=== PATIENT | female | born 1965 | race Caucasian/White ===

== ENCOUNTER 2020-07-22 17:35 | Emergency (ER) | payer BC ==
--- NOTE | 2020-07-22 18:05 | EDM.PDOC ---
ED HPI GENERAL MEDICAL PROBLEM - General Chief Complaint: Respiratory Problem Stated Complaint: BLOOD CLOT IN LUNG/SENT FROM [place] Time Seen by Provider: 07/22/20 17:50 Source of Information: Reports: Patient, RN Notes Reviewed History Limitations: Reports: No Limitations - History of Present Illness INITIAL COMMENTS - FREE TEXT/NARRATIVE: Patient is a 54-year-old female who presents to the ED from her oncologist office for further evaluation. The patient was at her doctor's office today to get IV fluids, and she began to develop chest pressure, and shortness of breath, and was found to have O2 sats that were 82 to 83% on room air. She was placed on oxygen at roughly 2 to 3 L and she does improved to around 95%. She quickly desaturates with any sort of movement. Patient notes that she has cancer pretty much all over they think the primary causes lung cancer. She has had 1 round of treatment. Her oncologist is Dr. Patel. She does note that she also had a thora centesis yesterday, and felt pretty good. She denies any fevers or chills, nausea/vomiting/diarrhea. She has no chest pain. She feels like she could be constipated, she has not had a bowel movement in roughly 3 days. She is also complaining of some pelvic pressure but notes that she has a mass in her pelvis and is not sure if this might be what is causing some of her issues. Apparently a CT was done at the [facility] and she was supposed to have had a pulmonary embolus, I have not seen the official read for this however. Treatments DRUG AND ALCOHOL TREATMENT SPECIALIST: Reports: Other (see below) Other Treatments DRUG AND ALCOHOL TREATMENT SPECIALIST: Chest xrray and CT at clinic Left Lower Chest Pain Score (Numeric/FACES): 5 - Related Data Allergies Allergy/AdvReac Type Severity Reaction Status Date / Time No Known Allergies Allergy Verified 07/22/20 17:47 Home Meds: Home Meds Acetaminophen [Tylenol] 325 mg PO DAILY PRN 07/22/20 [History] Hydrocodone/Acetaminophen [Hydrocodone-Acetamin 5-325 mg] 1 each PO Q4H PRN 07/22/20 [History] Levothyroxine 75 mcg PO ACBREAKFAST 07/22/20 [History] Morphine Sulfate 30 mg PO BID 07/22/20 [History] OLANZapine [ZyPREXA] 10 mg PO ASDIRECTED 07/22/20 [History] Ondansetron [Zofran ODT] 8 mg PO Q6H PRN 07/22/20 [History] Prochlorperazine [Compazine] 10 mg PO QID PRN 07/22/20 [History] dexAMETHasone [Decadron] 4 mg PO ASDIRECTED 07/22/20 [History] Social & Family History - Tobacco Use Tobacco Use Status *Q: Never Tobacco User - Caffeine Use Caffeine Use: Reports: Coffee - Recreational Drug Use Recreational Drug Use: No ED ROS GENERAL - Review of Systems Review Of Systems: Comprehensive ROS is negative, except as noted in HPI. ED EXAM, GENERAL - Physical Exam Exam: See Below Exam Limited By: No Limitations General Appearance: Alert, WD/WN, No Apparent Distress Respiratory/Chest: No Respiratory Distress, Lungs Clear, Normal Breath Sounds, No Accessory Muscle Use, Chest Non-Tender Cardiovascular: Normal Peripheral Pulses, Regular Rate, Rhythm, No Edema, No Murmur Peripheral Pulses: 2+: Radial (L), Radial (R) Extremities: Normal Inspection, Normal Capillary Refill Neurological: Alert, Oriented, Normal Cognition, No Motor/Sensory Deficits Psychiatric: Normal Affect, Normal Mood Skin Exam: Warm, Dry, Intact, Normal Color, No Rash #1 Interpretation EKG Date: 07/22/20 Time: 18:35 Rhythm: NSR (sinus tach) Rate (Beats/Min): 100 [place]: Normal P-Wave: Present QRS: Normal ST-T: Normal QT: Normal Comparison: NA - No Prior EKG EKG Interpretation Comments: No obvious ischemia or acute ST changes noted, reviewed by myself and Dr. Vargas. Course - Vital Signs Last Recorded V/S: Last Vital Signs Temp 97.6 F 07/22/20 17:48 Pulse 109 H 07/22/20 17:48 Resp 20 07/22/20 17:48 BP 146/77 H 07/22/20 17:48 Pulse Ox 94 L 07/22/20 17:48 - Orders/Labs/Meds Orders: Active Orders 24 hr Category Date Time Status EKG Documentation Completion [RC] STAT Care 07/22/20 18:27 Ordered Oxygen Therapy, ED [RC] ASDIRECTED Care 07/22/20 18:07 Ordered KUB [Abdomen 1V Flat] [CR] Stat Exams 07/22/20 18:11 Stop Req Heparin Sodium/D5W [Heparin 25,000 Units in D5W 500 ML] Med 07/22/20 21:15 Active 25,000 units in 500 ml IV TITRATE Medication Orders Heparin Sodium/Dextrose (Heparin 25,000 Units In D5w 500 Ml) 25,000 units in 500 mls @ 19.051 mls/hr IV TITRATE LAE; Protocol Labs: Laboratory Tests 07/22/20 07/22/20 07/22/20 Range/Units 18:30 18:30 18:30 WBC 0.94 L* (3.98-10.04) K/mm3 RBC 3.89 L (3.98-5.22) M/mm3 Hgb 11.8 (11.2-15.7) gm/dl Hct 35.6 (34.1-44.9) % MCV 91.5 (79.4-94.8) fl MCH 30.3 (25.6-32.2) pg MCHC 33.1 (32.2-35.5) g/dl RDW Std Deviation 43.0 (36.4-46.3) fL Plt Count 71 L (182-369) K/mm3 MPV 9.9 (9.4-12.3) fl Neut % (Auto) 21.2 L (34.0-71.1) % Lymph % (Auto) 68.1 H (19.3-51.7) % [place] % (Auto) 8.5 (4.7-12.5) % Eos % (Auto) 1.1 (0.7-5.8) Baso % (Auto) 1.1 (0.1-1.2) % Neut # (Auto) 0.20 L (1.56-6.13) K/mm3 Lymph # (Auto) 0.64 L (1.18-3.74) K/mm3 [place] # (Auto) 0.08 L (0.24-0.36) K/mm3 Eos # (Auto) 0.01 L (0.04-0.36) K/mm3 Baso # (Auto) 0.01 (0.01-0.08) K/mm3 Manual Slide Review Abnormal smear PT 10.3 (9.7-12.0) SECONDS INR 0.96 APTT 24.7 (21.7-31.4) SECONDS Sodium 135 L (136-145) mEq/L Potassium 3.3 L (3.5-5.1) mEq/L Chloride 101 (98-107) mEq/L Carbon Dioxide 26 (21-32) mEq/L Anion Gap 11.3 (5-15) BUN 12 (7-18) mg/dL Creatinine 0.6 (0.55-1.02) mg/dL Est Cr Clr Drug Dosing 99.18 mL/min Estimated GFR (MDRD) > 60 (>60) mL/min BUN/Creatinine Ratio 20.0 H (14-18) Glucose 110 H (74-106) mg/dL Calcium 8.1 L (8.5-10.1) mg/dL Total Bilirubin 0.3 (0.2-1.0) mg/dL AST 17 (15-37) U/L ALT 22 (14-59) U/L Alkaline Phosphatase 72 (46-116) U/L Troponin I (0.00-0.056) ng/mL Total Protein 5.9 L (6.4-8.2) g/dl Albumin 2.5 L (3.4-5.0) g/dl Globulin 3.4 gm/dL Albumin/Globulin Ratio 0.7 L (1-2) SARS-CoV-2 RNA (RADHA) (NEGATIVE) 07/22/20 07/22/20 Range/Units 18:30 18:55 WBC (3.98-10.04) K/mm3 RBC (3.98-5.22) M/mm3 Hgb (11.2-15.7) gm/dl Hct (34.1-44.9) % MCV (79.4-94.8) fl MCH (25.6-32.2) pg MCHC (32.2-35.5) g/dl RDW Std Deviation (36.4-46.3) fL Plt Count (182-369) K/mm3 MPV (9.4-12.3) fl Neut % (Auto) (34.0-71.1) % Lymph % (Auto) (19.3-51.7) % [place] % (Auto) (4.7-12.5) % Eos % (Auto) (0.7-5.8) Baso % (Auto) (0.1-1.2) % Neut # (Auto) (1.56-6.13) K/mm3 Lymph # (Auto) (1.18-3.74) K/mm3 [place] # (Auto) (0.24-0.36) K/mm3 Eos # (Auto) (0.04-0.36) K/mm3 Baso # (Auto) (0.01-0.08) K/mm3 Manual Slide Review PT (9.7-12.0) SECONDS INR APTT (21.7-31.4) SECONDS Sodium (136-145) mEq/L Potassium (3.5-5.1) mEq/L Chloride (98-107) mEq/L Carbon Dioxide (21-32) mEq/L Anion Gap (5-15) BUN (7-18) mg/dL Creatinine (0.55-1.02) mg/dL Est Cr Clr Drug Dosing mL/min Estimated GFR (MDRD) (>60) mL/min BUN/Creatinine Ratio (14-18) Glucose (74-106) mg/dL Calcium (8.5-10.1) mg/dL Total Bilirubin (0.2-1.0) mg/dL AST (15-37) U/L ALT (14-59) U/L Alkaline Phosphatase (46-116) U/L Troponin I < 0.017 (0.00-0.056) ng/mL Total Protein (6.4-8.2) g/dl Albumin (3.4-5.0) g/dl Globulin gm/dL Albumin/Globulin Ratio (1-2) SARS-CoV-2 RNA (RADHA) Negative (NEGATIVE) Meds: Medications Generic Name Dose Route Start Last Admin Trade Name Freq PRN Reason Stop Dose Admin Heparin Sodium/Dextrose 25,000 units in 500 mls @ 19.051 mls/hr 07/22/20 21:15 Heparin 25,000 Units In D5w 500 Ml IV TITRATE ALE Protocol 12 UNITS/KG/HR Discontinued Medications Generic Name Dose Route Start Last Admin Trade Name Freq PRN Reason Stop Dose Admin Heparin Sodium (Porcine) 4,000 units 07/22/20 21:04 Heparin Sodium IVPUSH 07/22/20 21:05 .BOLUS ONE Protocol - Re-Assessments/Exams Free Text/Narrative Re-Assessment/Exam: 07/22/20 18:08 Patient presents to the ED for evaluation of her respiratory issues. She apparently was found to have a pulmonary embolus on her CT however we do not have the official read. She is tachycardic, hypoxic, which would be consistent. I do believe due to the patient's malignancy, and ongoing pulmonary embolus with symptoms she could likely benefit from hospitalization. 07/22/20 18:36 We did get the CT report from [facility], there is a interval development of diffuse clot burden within the pulmonary arteries bilaterally. Moderate overall embolic burden. Clot is within the distal right main pulmonary artery extending into segmental and subsegmental pulmonary arteries within the right upper middle and lower lobes. Clot burden is seen within the segmental pulmonary arteries within the left upper lobe. No evidence of significant right heart strain is noticed at this time. There is also interval change of her diffuse metastatic disease. She has a moderate left pleural effusion as well. 07/22/20 19:00 Patient's EKG was done and read by myself and Dr. Vargas, there is no specific right heart strain identified. 07/22/20 19:16 Patient CBC is remarkable for a white blood cell level of 0.94. Review of her old labs did demonstrate that she had a level of 3.63 days ago. PT/INR is also within normal limits at this time. Platelet count is mildly low, it was at a level of 124 3 days ago it is at a level of 71 in the ER here. 07/22/20 19:50 The metabolic panel is essentially unremarkable. Potassium mildly low at 3.3. Patient's COVID-19 screen is negative. I will contact [facility] for a po ssible transfer to their facility for interventional radiology/hospital management for her PE. 07/22/20 20:33 Did have a long discussion with the patient's daughter and her , it does appear that the patient's disease is pretty widespread, and seems to be fairly aggressive. She does have quite a few pulmonary embolus that are concerning. Again I do believe she needs interventional radiology, possibly for removal of some of the clots. [facility] in [place] has told me they will call me back, when they get a second as they were on the phone with another transfer. The family members expressed wishes to be sent to [place] for management, as they ultimately would like her to end up in the care at [facility]. I told them I understand their position, but I do believe at this time she would be best served at [facility] in [place] where her oncologist is located, and then that they can progress to higher level of care as needed. 07/22/20 21:08 I was able to talk with Dr. Ramirez, hospitalist at [facility] in [place], she does graciously accept the patient for transfer and does recommend starting heparin bolus and drip. These orders have been put in, we will get her transferred by ambulance service to [facility] in [place]. Departure - Departure Time of Disposition: 21:08 Disposition: DC/Tfer to [facility] 02 Condition: Fair Clinical Impression: Bilateral pulmonary embolism, Hypoxia Metastatic cancer Qualifiers: Area of secondary neoplastic involvement: unspecified site Qualified Code(s): C79.9 - Secondary malignant neoplasm of unspecified site - Discharge Information *PRESCRIPTION DRUG MONITORING PROGRAM REVIEWED*: No *COPY OF PRESCRIPTION DRUG MONITORING REPORT IN PATIENT BARBARA: No Referrals: Joan Jackson MD [Primary Care Provider] - Forms: ED Department Discharge Sepsis Event Note (ED) - Evaluation Sepsis Screening Result: No Definite Risk - Focused Exam Vital Signs: Vital Signs Temp Pulse Resp BP Pulse Ox 07/22/20 17:48 97.6 F 109 H 20 146/77 H 94 L - My Orders Last 24 Hours: My Active Orders 07/22/20 18:07 Oxygen Therapy, ED [RC] ASDIRECTED 07/22/20 18:11 KUB [Abdomen 1V Flat] [CR] Stat 07/22/20 18:27 EKG Documentation Completion [RC] STAT 07/22/20 21:15 Heparin Sodium/D5W [Heparin 25,000 Units in D5W 500 ML] 25,000 units in 500 ml IV TITRATE - Assessment/Plan Last 24 Hours: My Active Orders 07/22/20 18:07 Oxygen Therapy, ED [RC] ASDIRECTED 07/22/20 18:11 KUB [Abdomen 1V Flat] [CR] Stat 07/22/20 18:27 EKG Documentation Completion [RC] STAT 07/22/20 21:15 Heparin Sodium/D5W [Heparin 25,000 Units in D5W 500 ML] 25,000 units in 500 ml IV TITRATE
[2020-07-22] MEDS ORDERED: Heparin Sodium 5,000 Units/ML Vial IVPUSH ONE (21:04)
[2020-07-22] MEDS ORDERED: Heparin Sodium/D5W 25,000 UNITS/500 ML BAG IV SCH (21:15)
--- NOTE | 2020-07-25 09:50 | CR ---
Chest: Portable view of the chest was obtained. Comparison: No prior chest imaging is available. Findings: Heart and mediastinum: Left heart margin not well seen but felt to be enlarged. Slight tortuosity of the aortais believed to be present. Right-sided infusion port is seen. Lungs: Increased density within the left lung base is seen presumably due to pneumonia if patient has infectious symptoms. Difficult to exclude small left-sided pleural effusion. Right lung is clear and left upper lung is clear. Osseous: No acute osseous findings are seen. Impression: 1. Increased density within the left lung base. Difficult to exclude pneumonia if patient has infectious symptoms. Difficult to exclude small left-sided pleural effusion. 2. Questionable cardiomegaly. Right-sided infusion catheter. Diagnostic code #3
== END 2020-07-22 22:26 ==
LOC: JD.ED 17:35
DX: I26.99 Other pulmonary embolism without acute cor pulmonale (principal); C79.9 Secondary malignant neoplasm of unspecified site; R09.02 Hypoxemia; R00.0 Tachycardia, unspecified; Z20.828 Contact with and (suspected) exposure to other viral communicable diseases
CPT/HCPCS: 36415; 71045-26; 80053; 84484; 85025; 85610; 85730; 93005; 93010; 96365; 99285; 99285-25; J1644; U0002

== ENCOUNTER 2021-11-02 11:46 | Emergency (ER) | payer BC ==
[2021-11-02] MEDS ORDERED: Ondansetron 4 MG/2 ML SDV IVPUSH ONE (12:14)
[2021-11-02] MEDS ORDERED: Sodium Chloride 0.9% 10 ML Syringe FLUSH PRN ×2 (12:14→12:50)
[2021-11-02] MEDS ORDERED: Sodium Chloride 0.9% 1,000 ML IV ONE ×2 (12:14→14:05)
[2021-11-02] MEDS ORDERED: Iopamidol 612 MG/ML 100 ML Bottle IVPUSH ONE (12:50)
[2021-11-02 13:33] LABS: CORONAVIRUS COVID-19 NAA NEGATIVE (NEGATIVE)
[2021-11-02] MEDS ORDERED: HYDROmorphone 1 MG/ML Syringe IVPUSH ONE (14:06)
== END 2021-11-02 15:20 ==
LOC: JD.ED 11:46
DX: K56.609 Unspecified intestinal obstruction, unspecified as to partial versus complete obstruction (principal); D70.9 Neutropenia, unspecified; D69.6 Thrombocytopenia, unspecified; E03.9 Hypothyroidism, unspecified; Z79.899 Other long term (current) drug therapy; Z20.822 Contact with and (suspected) exposure to COVID-19
CPT/HCPCS: 0240U; 36415; 43752; 71045; 74177; 80053; 83735; 85007; 85027; 86140; 96374; 96375; 99285; J1170; J2405; J7030; Q9967; J3490